=== PATIENT | male | born 1980 ===

== ENCOUNTER 2018-03-16 08:37 | Observation (INO) | payer OTHER ==
[2018-03-16 08:51] VITALS: BMI 29.0
[2018-03-16] MEDS ORDERED: Sodium Chloride 0.9% 1,000 ML IV STA (09:24)
[2018-03-16] MEDS ORDERED: WATER IVPB ONE ×4 (09:45→15:00)
[2018-03-16] MEDS ORDERED: DEXTROSE 5% IVPB ONE ×4 (09:45→15:00)
[2018-03-16] MEDS ORDERED: ACETYLCYSTEINE IVPB ONE ×4 (09:45→15:00)
--- NOTE | 2018-03-16 09:46 | ED PDOC ---
HPI: Abdomen Time Seen by Provider: 03/16/18 09:07 Chief Complaint (Nursing): Abdominal Pain Chief Complaint (Provider): Abdominal pain History Per: Patient, Child Monitor ([id number] [id number]) History/Exam Limitations: no limitations Onset/Duration Of Symptoms: Hrs Current Symptoms Are (Timing): Still Present Location Of Pain/Discomfort: Epigastric Additional History Per: Patient Additional Complaint(s): 37yo male, otherwise well, comes to ER reporting he "took too many tylenol" and now has abdominal pain. Patient states today at 1AM, patient was involved in an argument with his family and took 20 tablets of Tylenol 500mg "for attention." Patient states he subsequently had headache, abdominal pain and vomiting. Patient currently denies any suicidal ideation or plan. He has no additional medical complaints. No drugs or etoh. No chest pain or dyspnea. Patient denies any other alcohol or drug use. Past Medical History Reviewed: Historical Data, Nursing Documentation, Vital Signs Vital Signs: Last Vital Signs Temp 98.7 F 03/16/18 08:50 Pulse 75 03/16/18 08:50 Resp 18 03/16/18 08:50 BP 146/86 03/16/18 08:50 Pulse Ox 98 03/16/18 08:50 - Medical History PMH: No Chronic Diseases - Surgical History Surgical History: No Surg Hx - Family History Family History: States: No Known Family Hx - Home Medications Home Medications: Ambulatory Orders Medication Instructions Recorded No Known Home Med 01/31/17 - Allergies Allergies/Adverse Reactions: Allergies Allergy/AdvReac Type Severity Reaction Status Date / Time No Known Allergies Allergy Verified 01/31/17 21:32 Review of Systems ROS Statement: Except As Marked, All Systems Reviewed And Found Negative Constitutional: Negative for: Fever, Chills Cardiovascular: Negative for: Chest Pain Respiratory: Negative for: Shortness of Breath Gastrointestinal: Positive for: Abdominal Pain Genitourinary Male: Negative for: Dysuria Musculoskeletal: Negative for: Back Pain Neurological: Positive for: Headache. Negative for: Weakness, Numbness Psych: Negative for: Suicidal ideation Physical Exam - Reviewed Nursing Documentation Reviewed: Yes Vital Signs Reviewed: Yes - Physical Exam Appears: Positive for: Uncomfortable Head Exam: Positive for: ATRAUMATIC, NORMAL INSPECTION, NORMOCEPHALIC Skin: Positive for: Normal Color Eye Exam: Positive for: Normal appearance, EOMI, PERRL Neck: Positive for: Normal, Supple Cardiovascular/Chest: Positive for: Regular Rate, Rhythm Respiratory: Positive for: Normal Breath Sounds Gastrointestinal/Abdominal: Positive for: Soft, Tenderness (mild epigastric tenderness). Negative for: Guarding, Rebound Back: Positive for: Normal Inspection. Negative for: L CVA Tenderness, R CVA Tenderness, Vertebral Tenderness Extremity: Positive for: Normal ROM. Negative for: Pedal Edema Neurologic/Psych: Positive for: Alert, Oriented. Negative for: Motor/Sensory Deficits - Laboratory Results Result Diagrams: 03/16/18 09:52 03/16/18 09:52 Interpretation Of Abn Labs: 131 tylenol - ECG ECG: Positive for: Interpreted By Me, Viewed By Me ECG Rhythm: Positive for: Normal QRS, Normal ST Segment O2 Sat by Pulse Oximetry: 98 (RA) Pulse Ox Interpretation: Normal - Progress ED Course And Treament: 1045: Continue NAC. Tylenol levels in toxic levels per nomogram. Will need full dosing over 24hrs. 1108: Spoke with Dr. Garza. Will admit. Stable. AAOx3. - Critical Care Total Time (In Min): 30 Documented Critical Care: Time excludes all time spent performint seperately billable procedures Medical Decision Making Medical Decision Making: Impression: Tylenol overdose Plan: * Poison control consult 0933 Per poison control, labs ordered. Patient given Acetadote and IV Fluids. Patient placed on 1:1 observation. Scribe Attestation: Documented by Raquel Le, acting as a scribe for Sanchez De León MD. Provider Scribe Attestation: All medical record entries made by the Scribe were at my direction and personally dictated by me. I have reviewed the chart and agree that the record accurately reflects my personal performance of the history, physical exam, medical decision making, and the department course for this patient. I have also personally directed, reviewed, and agree with the discharge instructions and disposition. Disposition - Clinical Impression Clinical Impression: Tylenol overdose Counseled Patient/Family Regarding: Studies Performed, Diagnosis - Disposition Disposition Time: 11:10 Condition: GUARDED - Pt Status Changed To: Hospital Disposition Of: Inpatient - Admit Certification Admit to Inpatient:: After my assessment, the patient will require hospitalization for at least two midnights. This is because of the severity of symptoms shown, intensity of services needed, and/or the medical risk in this patient being treated as an outpatient. - POA Present On Arrival: None
[2018-03-16 09:57] LABS: BASO # 0.1 K/uL (0.0-0.2); BASO % 0.4 % (0.0-2.0); EOS % 0.2 % (0.0-4.0); HEMOGLOBIN 16.7 g/dL (12.0-18.0); LYMPH # 1.6 K/uL (1.0-4.3); LYMPH % 13.2 % (20.0-40.0); MEAN CORPUSCULAR HEMOGLOBIN 32.8 pg (27.0-31.0); MEAN CORPUSCULAR HGB CONC 34.9 g/dL (33.0-37.0); MEAN PLATELET VOLUME 8.2 fl (7.2-11.7); MONO # 0.5 K/uL (0.0-0.8); MONO % 4.3 % (0.0-10.0); NEUT # 9.9 K/uL (1.8-7.0); NEUT % 81.9 % (50.0-75.0); NRBC % 0.1 % (0.0-0.0); RBC 5.08 Mil/uL (4.40-5.90); RED CELL DISTRIBUTION WIDTH 13.4 % (11.5-14.5); WHITE BLOOD COUNT 12.2 K/uL (4.8-10.8)
[2018-03-16 10:10] LABS: INR 1.1; PROTHROMBIN TIME 12.4 Seconds (9.8-13.1)
[2018-03-16 10:11] LABS: ALB/GLOB RATIO 1.3 (1.0-2.1); ALBUMIN 4.6 g/dL (3.5-5.0); BLOOD UREA NITROGEN 14 mg/dl (9-20); CALCIUM 9.5 mg/dL (8.4-10.2); GFR NON-AFRICAN AMERICAN > 60; LIPASE 146 U/L (23-300)
[2018-03-16 10:12] LABS: PARTIAL THROMBOPLASTIN TIME 34.4 Seconds (25.6-37.1)
[2018-03-16 10:19] LABS: ALT/SGPT 52 U/L (21-72); AST/SGOT 34 U/L (17-59); BARBITURATES, UR NEGATIVE (NEGATIVE); BENZODIAZEPINES, UR NEGATIVE (NEGATIVE); OPIATES, UR NEGATIVE (NEGATIVE); PHENCYCLIDINE, UR NEGATIVE (NEGATIVE)
[2018-03-16 10:30] LABS: SALICYLATE < 1.0 mg/dl
--- NOTE | 2018-03-16 11:56 | CP.PCM.HP ---
<Alyssa Sommers - Last Filed: 03/16/18 17:09> History of Present Illness - History of Present Illness History of Present Illness: This is 37 y/o male with no significant PMH admitted to [facility] s/p Tylenol overdose at 1am in the morning. Patient came to the ER c/o acute onset of abdominal pain, nausea and vomiting which started at 8 am in the morning. Patient reports taking about 20 Tab of Tyenol 500mg each after had an argument with his at home. Patient denies any SI/HI, reports no prior episode of this kind of behavior. Patient took tylenol, slept and went to work in morning where he started c/o upper mid abdominal pain, nausea and vomited x2 NBNB. Abdominal pain is 6/10, non-radiating, no alleviating or aggravating factors. Patient denies any SOB, chest pain, palpitations, urinary symptoms or weakness. Patient denies any PMH of mood disorders or family hx of any psych conditions. [place] [id number] PMD: None PMH: Denies PSH: Appendectomy as a child Allg: NKDA Medications: None SH: Denies any alcohol, smoking or illicit drug use FH: Mother with HTN, Healthy father and a sister ROS: As per HPI ER Course: VS: 98.7, 75, 18, 146/86, Spo2 98 CBC: Significant for wbc 12.2 CMP: wnls, no elevated LFTs Negative trop, lipase normal Coag: Wnl UTox: Negative Acetaminophen 131H EKG NSR Poison control contacted Started on NAC and IVF Present on Admission - Present on Admission Any Indicators Present on Admission: No History of DVT/PE: No History of Uncontrolled Diabetes: No Review of Systems - Constitutional Constitutional: As Per HPI - EENT Eyes: absent: Change in Vision, Other Visual Disturbances, Loss of Vision Ears: absent: Ear Pain, Tinnitus Nose/Mouth/Throat: absent: Nose Pain, Sinus Pain, Hoarsness, Lip Swelling - Cardiovascular Cardiovascular: absent: Chest Pain, Edema, Paroxysmal Nocturnal Dyspnea - Respiratory Respiratory: absent: Cough, Hemoptysis, Dyspnea on Exertion, Wheezing - Gastrointestinal Gastrointestinal: Abdominal Pain, Nausea. absent: Diarrhea - Genitourinary Genitourinary: absent: Hematuria - Musculoskeletal Musculoskeletal: absent: Back Pain - Neurological Neurological: absent: Abnormal Gait Past Patient History - Past Social History Smoking Status: Current Some Days Smoker - CARDIAC Hx Hypertension: Yes - PSYCHIATRIC Hx Depression: Yes Hx Substance Use: No - SURGICAL HISTORY Hx Surgeries: Yes Hx Appendectomy: Yes - ANESTHESIA Hx Anesthesia: Yes Hx Anesthesia Reactions: No Meds Allergies/Adverse Reactions: Allergies Allergy/AdvReac Type Severity Reaction Status Date / Time No Known Allergies Allergy Verified 01/31/17 21:32 Physical Exam - Constitutional Appears: No Acute Distress - Head Exam Head Exam: NORMAL INSPECTION - Eye Exam Eye Exam: EOMI, Normal appearance, PERRL Pupil Exam: NORMAL ACCOMODATION - ENT Exam ENT Exam: Mucous Membranes Moist - Neck Exam Neck exam: Positive for: Normal Inspection - Respiratory Exam Respiratory Exam: Clear to Auscultation Bilateral, NORMAL BREATHING PATTERN. absent: Accessory Muscle Use, Chest Wall Tenderness, Decreased Breath Sounds, Rhonchi, Wheezes - Cardiovascular Exam Cardiovascular Exam: REGULAR RHYTHM, +S1, +S2 - GI/Abdominal Exam GI & Abdominal Exam: Normal Bowel Sounds, Soft. absent: Guarding, Hernia, Rebound, Rigid, Tenderness - Back Exam Back exam: absent: CVA tenderness (L), CVA tenderness (R) - Neurological Exam Neurological exam: Alert, CN II-XII Intact, Oriented x3, Reflexes Normal - Psychiatric Exam Psychiatric exam: Normal Affect - Skin Skin Exam: Normal Color Results - Vital Signs Recent Vital Signs: Last Vital Signs Temp 97 F L 03/16/18 11:23 Pulse 66 03/16/18 11:23 Resp 19 03/16/18 11:23 BP 140/75 03/16/18 11:23 Pulse Ox 98 03/16/18 11:23 - Labs Result Diagrams: 03/16/18 09:52 03/16/18 09:52 Labs: Laboratory Results - last 24 hr 03/16/18 03/16/18 03/16/18 09:52 09:52 09:52 WBC 12.2 H RBC 5.08 Hgb 16.7 Hct 47.7 MCV 94.0 MCH 32.8 H MCHC 34.9 RDW 13.4 Plt Count 250 MPV 8.2 Neut % (Auto) 81.9 H Lymph % (Auto) 13.2 L Carver % (Auto) 4.3 Eos % (Auto) 0.2 Baso % (Auto) 0.4 Neut # (Auto) 9.9 H Lymph # (Auto) 1.6 Carver # (Auto) 0.5 Eos # (Auto) 0.0 Baso # (Auto) 0.1 PT INR APTT Sodium 140 Potassium 4.2 Chloride 107 Carbon Dioxide 23 Anion Gap 14 BUN 14 Creatinine 0.6 L Est GFR ( Amer) > 60 Est GFR (Non-Af Amer) > 60 Random Glucose 141 H Calcium 9.5 Phosphorus 3.7 Magnesium 2.3 Total Bilirubin 0.9 AST 34 ALT 52 Alkaline Phosphatase 56 Troponin I < 0.0120 Total Protein 8.2 Albumin 4.6 Globulin 3.6 Albumin/Globulin Ratio 1.3 Lipase 146 Salicylates < 1.0 Urine Opiates Screen Urine Methadone Screen Acetaminophen 131.0 H Ur Barbiturates Screen Ur Phencyclidine Scrn Ur Amphetamines Screen U Benzodiazepines Scrn U Oth Cocaine Metabols U Cannabinoids Screen Alcohol, Quantitative < 10 03/16/18 03/16/18 09:52 09:52 WBC RBC Hgb Hct MCV MCH MCHC RDW Plt Count MPV Neut % (Auto) Lymph % (Auto) Carver % (Auto) Eos % (Auto) Baso % (Auto) Neut # (Auto) Lymph # (Auto) Carver # (Auto) Eos # (Auto) Baso # (Auto) PT 12.4 INR 1.1 APTT 34.4 Sodium Potassium Chloride Carbon Dioxide Anion Gap BUN Creatinine Est GFR ( Amer) Est GFR (Non-Af Amer) Random Glucose Calcium Phosphorus Magnesium Total Bilirubin AST ALT Alkaline Phosphatase Troponin I Total Protein Albumin Globulin Albumin/Globulin Ratio Lipase Salicylates Urine Opiates Screen Negative Urine Methadone Screen Negative Acetaminophen Ur Barbiturates Screen Negative Ur Phencyclidine Scrn Negative Ur Amphetamines Screen Negative U Benzodiazepines Scrn Negative U Oth Cocaine Metabols Negative U Cannabinoids Screen Negative Alcohol, Quantitative Assessment & Plan - Assessment and Plan (Free Text) Assessment: A/P: 37 y/o male with no significant PMH admitted to [facility] s/p Tylenol about 20 Tabs, 500mg each. Tylenol Overdose, about 10gm, Acetaminophen level 131 and normal initial LFTs - Poison Controlled was informed - Psych consult, Follow up recommendations - C/w NAC protocol - F/u with Acetaminophen Level this afternoon - C/w IVF, Regular diet - C/w 1:1 for now - Monitor Labs in AM Abdominal pain/Nausea/Vomiting possibly due to acetaminophen overdose - C/w NAC - C/w IVF - NPO for now, Advance diet as tolerated - Zofran PRN - Monitor AM labs DVT PPX - Lovenox 40mg PO daily <Kory Garza D - Last Filed: 03/16/18 17:35> Results - Vital Signs Recent Vital Signs: Last Vital Signs Temp 98.1 F 03/16/18 16:01 Pulse 69 03/16/18 16:01 Resp 20 03/16/18 16:01 BP 131/83 03/16/18 16:01 Pulse Ox 100 03/16/18 16:01 - Labs Result Diagrams: 03/16/18 09:52 03/16/18 09:52 Labs: Laboratory Results - last 24 hr 03/16/18 03/16/18 03/16/18 09:52 09:52 09:52 WBC 12.2 H RBC 5.08 Hgb 16.7 Hct 47.7 MCV 94.0 MCH 32.8 H MCHC 34.9 RDW 13.4 Plt Count 250 MPV 8.2 Neut % (Auto) 81.9 H Lymph % (Auto) 13.2 L Carver % (Auto) 4.3 Eos % (Auto) 0.2 Baso % (Auto) 0.4 Neut # (Auto) 9.9 H Lymph # (Auto) 1.6 Carver # (Auto) 0.5 Eos # (Auto) 0.0 Baso # (Auto) 0.1 PT INR APTT Sodium 140 Potassium 4.2 Chloride 107 Carbon Dioxide 23 Anion Gap 14 BUN 14 Creatinine 0.6 L Est GFR ( Amer) > 60 Est GFR (Non-Af Amer) > 60 Random Glucose 141 H Calcium 9.5 Phosphorus 3.7 Magnesium 2.3 Total Bilirubin 0.9 AST 34 ALT 52 Alkaline Phosphatase 56 Troponin I < 0.0120 Total Protein 8.2 Albumin 4.6 Globulin 3.6 Albumin/Globulin Ratio 1.3 Lipase 146 Salicylates < 1.0 Urine Opiates Screen Urine Methadone Screen Acetaminophen 131.0 H Ur Barbiturates Screen Ur Phencyclidine Scrn Ur Amphetamines Screen U Benzodiazepines Scrn U Oth Cocaine Metabols U Cannabinoids Screen Alcohol, Quantitative < 10 03/16/18 03/16/18 03/16/18 09:52 09:52 16:26 WBC RBC Hgb Hct MCV MCH MCHC RDW Plt Count MPV Neut % (Auto) Lymph % (Auto) Carver % (Auto) Eos % (Auto) Baso % (Auto) Neut # (Auto) Lymph # (Auto) Carver # (Auto) Eos # (Auto) Baso # (Auto) PT 12.4 INR 1.1 APTT 34.4 Sodium Potassium Chloride Carbon Dioxide Anion Gap BUN Creatinine Est GFR ( Amer) Est GFR (Non-Af Amer) Random Glucose Calcium Phosphorus Magnesium Total Bilirubin AST ALT Alkaline Phosphatase Troponin I Total Protein Albumin Globulin Albumin/Globulin Ratio Lipase Salicylates Urine Opiates Screen Negative Urine Methadone Screen Negative Acetaminophen 24.0 Ur Barbiturates Screen Negative Ur Phencyclidine Scrn Negative Ur Amphetamines Screen Negative U Benzodiazepines Scrn Negative U Oth Cocaine Metabols Negative U Cannabinoids Screen Negative Alcohol, Quantitative Attending/Attestation - Attestation I have personally seen and examined this patient.: Yes I have fully participated in the care of the patient.: Yes I have reviewed all pertinent clinical information: Yes
--- NOTE | 2018-03-16 16:01 | CARD ---
APPROVED REPORT Date of service: 03/16/2018 EKG Measurement Heart [id number] <Conclusion> Normal sinus rhythm Minimal voltage criteria for LVH, may be normal variant Borderline ECG
[2018-03-16] MEDS ORDERED: Pneumococcal 23-Valent Vaccine IM ONE (16:21)
[2018-03-16] MEDS ORDERED: Influenza Vaccine (5 YR UP)/PF 60 MCG/0.5 ML SYR IM ONE (17:42)
[2018-03-16] MEDS: Sodium Chloride 0.9% 1,000 ML IV SCH (18:53)
[2018-03-17 05:59] LABS: INR 1.3; PROTHROMBIN TIME 13.9 Seconds (9.8-13.1)
[2018-03-17 06:01] LABS: BASO % 0.2 % (0.0-2.0); EOS # 0.2 K/uL (0.0-0.7); EOS % 2.2 % (0.0-4.0); HEMOGLOBIN 16.2 g/dL (12.0-18.0); LYMPH # 2.5 K/uL (1.0-4.3); LYMPH % 26.7 % (20.0-40.0); MEAN CELL VOLUME 94.9 fl (80.0-94.0); MEAN CORPUSCULAR HEMOGLOBIN 32.4 pg (27.0-31.0); MEAN CORPUSCULAR HGB CONC 34.1 g/dL (33.0-37.0); MEAN PLATELET VOLUME 8.5 fl (7.2-11.7); MONO # 0.6 K/uL (0.0-0.8); MONO % 6.2 % (0.0-10.0); NEUT % 64.7 % (50.0-75.0); RED CELL DISTRIBUTION WIDTH 13.1 % (11.5-14.5); WHITE BLOOD COUNT 9.3 K/uL (4.8-10.8)
[2018-03-17 06:02] LABS: PARTIAL THROMBOPLASTIN TIME 31.8 Seconds (25.6-37.1)
[2018-03-17 06:26] LABS: ALB/GLOB RATIO 1.2 (1.0-2.1); ALT/SGPT 46 U/L (21-72); AST/SGOT 28 U/L (17-59); BLOOD UREA NITROGEN 8 mg/dl (9-20); CALCIUM 9.4 mg/dL (8.4-10.2); GFR NON-AFRICAN AMERICAN > 60
[2018-03-17] MEDS ORDERED: Potassium Chloride 20 mEq ER Tab PO ONE (06:44)
--- NOTE | 2018-03-17 08:19 | CP.PCM.CON ---
History of Present Illness - History of Present Illness History of Present Illness: Psychiatry consult note CC: "I had a fight with my girlfriend." HPI: 37 yo male w/ no past psychiatric or medical history, admitted to telemetry unit, s/p intentional overdose of 20 tablets of Tylenol (500 mg) after having an argument with his girlfriend. He reports that at the time he took the pills he was feeling depressed, but now reports that taking the pills was an "error." He denies AH/VH/SI/HI/paranoia/delusions. Patient denies that it was as suicide attempt, but he is currently minimizing the severity of the recent overdose. PMD: None PMH: Denies PPH: No past psychiatric history PSH: Appendectomy as a child All: NKDA Medications: None SH: Denies any alcohol, smoking or illicit drug use; works as a school bus driver/custodian, from [employer] [facility] FH: Mother with HTN, Healthy father and a sister MSE: A + O x 3, calm, cooperate, mood- "okay", affect- depressed/constricted, speech soft, no AH/VH, thought process- linear/coherent, thought content- no delusions, +Recent overdose, but denies current SI/HI; Poor I/J Impression: 37 yo male w/ no past psychiatric history admitted s/p intentional tylenol overdose. -Recommend voluntary inpatient psychiatric admission; if patient is not agreeable, would recommend to screen the patient for involuntary psychiatric commitment -Continue 1:1 for safety Past Patient History - Past Medical History & Family History Past Medical History?: No - Past Social History Smoking Status: Current Some Days Smoker - CARDIAC Hx Hypertension: Yes - PULMONARY Hx Respiratory Disorders: No - NEUROLOGICAL Hx Neurological Disorder: No - HEENT Hx HEENT Problems: No - RENAL Hx Chronic Kidney Disease: No - ENDOCRINE/METABOLIC Hx Endocrine Disorders: No - HEMATOLOGICAL/ONCOLOGICAL Hx Blood Disorders: No Hx AIDS: No Hx Human Immunodeficiency Virus (HIV): No - INTEGUMENTARY Hx Dermatological Problems: No - MUSCULOSKELETAL/RHEUMATOLOGICAL Hx Musculoskeletal Disorders: No Hx Falls: No - GASTROINTESTINAL Hx Gastrointestinal Disorders: No - GENITOURINARY/GYNECOLOGICAL Hx Genitourinary Disorders: No - PSYCHIATRIC Hx Depression: Yes Hx Substance Use: No - SURGICAL HISTORY Hx Surgeries: Yes Hx Appendectomy: Yes - ANESTHESIA Hx Anesthesia: Yes Hx Anesthesia Reactions: No Meds Allergies/Adverse Reactions: Allergies Allergy/AdvReac Type Severity Reaction Status Date / Time No Known Allergies Allergy Verified 01/31/17 21:32 - Medications Medications: Current Medications Enoxaparin Sodium (Lovenox) 40 mg SC DAILY PARAS; Protocol Sodium Chloride (Sodium Chloride 0.9%) 1,000 mls @ 125 mls/hr IV .Q8H PARAS Stop: 03/17/18 15:52 Last Admin: 03/16/18 18:53 Dose: Not Given Ondansetron HCl (Zofran Inj) 4 mg IVP Q6 PRN PRN Reason: Nausea/Vomiting Results - Vital Signs Recent Vital Signs: Last Vital Signs Temp 97.7 F 03/17/18 04:52 Pulse 73 03/17/18 04:52 Resp 18 03/17/18 04:52 BP 114/60 03/17/18 04:52 Pulse Ox 98 03/17/18 04:52 - Labs Result Diagrams: 03/17/18 04:25 03/17/18 04:25 Labs: Laboratory Results - last 24 hr 03/16/18 03/16/18 03/16/18 09:52 09:52 09:52 WBC 12.2 H RBC 5.08 Hgb 16.7 Hct 47.7 MCV 94.0 MCH 32.8 H MCHC 34.9 RDW 13.4 Plt Count 250 MPV 8.2 Neut % (Auto) 81.9 H Lymph % (Auto) 13.2 L Loving % (Auto) 4.3 Eos % (Auto) 0.2 Baso % (Auto) 0.4 Neut # (Auto) 9.9 H Lymph # (Auto) 1.6 Loving # (Auto) 0.5 Eos # (Auto) 0.0 Baso # (Auto) 0.1 PT INR APTT Sodium 140 Potassium 4.2 Chloride 107 Carbon Dioxide 23 Anion Gap 14 BUN 14 Creatinine 0.6 L Est GFR ( Amer) > 60 Est GFR (Non-Af Amer) > 60 Random Glucose 141 H Lactic Acid Calcium 9.5 Phosphorus 3.7 Magnesium 2.3 Total Bilirubin 0.9 AST 34 ALT 52 Alkaline Phosphatase 56 Troponin I < 0.0120 Total Protein 8.2 Albumin 4.6 Globulin 3.6 Albumin/Globulin Ratio 1.3 Lipase 146 Salicylates < 1.0 Urine Opiates Screen Urine Methadone Screen Acetaminophen 131.0 H Ur Barbiturates Screen Ur Phencyclidine Scrn Ur Amphetamines Screen U Benzodiazepines Scrn U Oth Cocaine Metabols U Cannabinoids Screen Alcohol, Quantitative < 10 03/16/18 03/16/18 03/16/18 09:52 09:52 16:26 WBC RBC Hgb Hct MCV MCH MCHC RDW Plt Count MPV Neut % (Auto) Lymph % (Auto) Loving % (Auto) Eos % (Auto) Baso % (Auto) Neut # (Auto) Lymph # (Auto) Loving # (Auto) Eos # (Auto) Baso # (Auto) PT 12.4 INR 1.1 APTT 34.4 Sodium Potassium Chloride Carbon Dioxide Anion Gap BUN Creatinine Est GFR ( Amer) Est GFR (Non-Af Amer) Random Glucose Lactic Acid Calcium Phosphorus Magnesium Total Bilirubin AST ALT Alkaline Phosphatase Troponin I Total Protein Albumin Globulin Albumin/Globulin Ratio Lipase Salicylates Urine Opiates Screen Negative Urine Methadone Screen Negative Acetaminophen 24.0 Ur Barbiturates Screen Negative Ur Phencyclidine Scrn Negative Ur Amphetamines Screen Negative U Benzodiazepines Scrn Negative U Oth Cocaine Metabols Negative U Cannabinoids Screen Negative Alcohol, Quantitative 03/17/18 03/17/18 03/17/18 04:25 04:25 04:25 WBC 9.3 RBC 5.00 Hgb 16.2 Hct 47.5 MCV 94.9 H MCH 32.4 H MCHC 34.1 RDW 13.1 Plt Count 239 MPV 8.5 Neut % (Auto) 64.7 Lymph % (Auto) 26.7 Loving % (Auto) 6.2 Eos % (Auto) 2.2 Baso % (Auto) 0.2 Neut # (Auto) 6.0 Lymph # (Auto) 2.5 Loving # (Auto) 0.6 Eos # (Auto) 0.2 Baso # (Auto) 0.0 PT INR APTT Sodium 137 Potassium 3.3 L Chloride 104 Carbon Dioxide 25 Anion Gap 11 BUN 8 L Creatinine 0.5 L Est GFR ( Amer) > 60 Est GFR (Non-Af Amer) > 60 Random Glucose 120 H Lactic Acid 0.8 Calcium 9.4 Phosphorus Magnesium Total Bilirubin 0.7 AST 28 ALT 46 Alkaline Phosphatase 56 Troponin I Total Protein 7.2 Albumin 4.0 Globulin 3.2 Albumin/Globulin Ratio 1.2 Lipase Salicylates Urine Opiates Screen Urine Methadone Screen Acetaminophen Ur Barbiturates Screen Ur Phencyclidine Scrn Ur Amphetamines Screen U Benzodiazepines Scrn U Oth Cocaine Metabols U Cannabinoids Screen Alcohol, Quantitative 03/17/18 03/17/18 04:25 04:25 WBC RBC Hgb Hct MCV MCH MCHC RDW Plt Count MPV Neut % (Auto) Lymph % (Auto) Loving % (Auto) Eos % (Auto) Baso % (Auto) Neut # (Auto) Lymph # (Auto) Loving # (Auto) Eos # (Auto) Baso # (Auto) PT 13.9 H INR 1.3 APTT 31.8 Sodium Potassium Chloride Carbon Dioxide Anion Gap BUN Creatinine Est GFR ( Amer) Est GFR (Non-Af Amer) Random Glucose Lactic Acid Calcium Phosphorus Magnesium Total Bilirubin AST ALT Alkaline Phosphatase Troponin I Total Protein Albumin Globulin Albumin/Globulin Ratio Lipase Salicylates Urine Opiates Screen Urine Methadone Screen Acetaminophen < 10.0 L Ur Barbiturates Screen Ur Phencyclidine Scrn Ur Amphetamines Screen U Benzodiazepines Scrn U Oth Cocaine Metabols U Cannabinoids Screen Alcohol, Quantitative
[2018-03-17 08:43] VITALS: O2SAT 97
[2018-03-17] MEDS ORDERED: Enoxaparin 40 mg Syringe SC SCH (09:00)
--- NOTE | 2018-03-17 09:16 | CP.PCM.DIS ---
<Alyssa Sommers - Last Filed: 03/17/18 09:42> Provider - Provider Date of Admission: 03/16/18 11:08 Attending physician: Kory Garza MD Primary care physician: None Consults: Poison Control Time Spent in preparation of Discharge (in minutes): 40 Diagnosis - Discharge Diagnosis (1) Tylenol overdose Status: Acute (2) Depressed mood Status: Acute Hospital Course - Lab Results Lab Results: Most Recent Lab Values WBC 9.3 K/uL (4.8-10.8) 03/17/18 04:25 RBC 5.00 Mil/uL (4.40-5.90) 03/17/18 04:25 Hgb 16.2 g/dL (12.0-18.0) 03/17/18 04:25 Hct 47.5 % (35.0-51.0) 03/17/18 04:25 MCV 94.9 fl (80.0-94.0) H 03/17/18 04:25 MCH 32.4 pg (27.0-31.0) H 03/17/18 04:25 MCHC 34.1 g/dL (33.0-37.0) 03/17/18 04:25 RDW 13.1 % (11.5-14.5) 03/17/18 04:25 Plt Count 239 K/uL (130-400) 03/17/18 04:25 MPV 8.5 fl (7.2-11.7) 03/17/18 04:25 Neut % (Auto) 64.7 % (50.0-75.0) 03/17/18 04:25 Lymph % (Auto) 26.7 % (20.0-40.0) 03/17/18 04:25 [place] % (Auto) 6.2 % (0.0-10.0) 03/17/18 04:25 Eos % (Auto) 2.2 % (0.0-4.0) 03/17/18 04:25 Baso % (Auto) 0.2 % (0.0-2.0) 03/17/18 04:25 Neut # (Auto) 6.0 K/uL (1.8-7.0) 03/17/18 04:25 Lymph # (Auto) 2.5 K/uL (1.0-4.3) 03/17/18 04:25 [place] # (Auto) 0.6 K/uL (0.0-0.8) 03/17/18 04:25 Eos # (Auto) 0.2 K/uL (0.0-0.7) 03/17/18 04:25 Baso # (Auto) 0.0 K/uL (0.0-0.2) 03/17/18 04:25 PT 13.9 Seconds (9.8-13.1) H 03/17/18 04:25 INR 1.3 03/17/18 04:25 APTT 31.8 Seconds (25.6-37.1) 03/17/18 04:25 Sodium 137 mmol/l (132-148) 03/17/18 04:25 Potassium 3.3 MMOL/L (3.6-5.0) L 03/17/18 04:25 Chloride 104 mmol/L (98-107) 03/17/18 04:25 Carbon Dioxide 25 mmol/L (22-30) 03/17/18 04:25 Anion Gap 11 (10-20) 03/17/18 04:25 BUN 8 mg/dl (9-20) L 03/17/18 04:25 Creatinine 0.5 mg/dl (0.8-1.5) L 03/17/18 04:25 Est GFR ( Amer) > 60 03/17/18 04:25 Est GFR (Non-Af Amer) > 60 03/17/18 04:25 Random Glucose 120 mg/dL (75-110) H 03/17/18 04:25 Lactic Acid 0.8 MMOL/L (0.7-2.1) 03/17/18 04:25 Calcium 9.4 mg/dL (8.4-10.2) 03/17/18 04:25 Phosphorus 3.7 mg/dl (2.5-4.5) 03/16/18 09:52 Magnesium 2.3 MG/DL (1.6-2.3) 03/16/18 09:52 Total Bilirubin 0.7 mg/dl (0.2-1.3) 03/17/18 04:25 AST 28 U/L (17-59) 03/17/18 04:25 ALT 46 U/L (21-72) 03/17/18 04:25 Alkaline Phosphatase 56 U/L (38-126) 03/17/18 04:25 Troponin I < 0.0120 ng/mL (0.00-0.120) 03/16/18 09:52 Total Protein 7.2 G/DL (6.3-8.2) 03/17/18 04:25 Albumin 4.0 g/dL (3.5-5.0) 03/17/18 04:25 Globulin 3.2 gm/dL (2.2-3.9) 03/17/18 04:25 Albumin/Globulin Ratio 1.2 (1.0-2.1) 03/17/18 04:25 Lipase 146 U/L (23-300) 03/16/18 09:52 Salicylates < 1.0 mg/dl 03/16/18 09:52 Urine Opiates Screen Negative (NEGATIVE) 03/16/18 09:52 Urine Methadone Screen Negative (NEGATIVE) 03/16/18 09:52 Acetaminophen < 10.0 ug/ml (10.0-30.0) L 03/17/18 04:25 Ur Barbiturates Screen Negative (NEGATIVE) 03/16/18 09:52 Ur Phencyclidine Scrn Negative (NEGATIVE) 03/16/18 09:52 Ur Amphetamines Screen Negative (NEGATIVE) 03/16/18 09:52 U Benzodiazepines Scrn Negative (NEGATIVE) 03/16/18 09:52 U Oth Cocaine Metabols Negative (NEGATIVE) 03/16/18 09:52 U Cannabinoids Screen Negative (NEGATIVE) 03/16/18 09:52 Alcohol, Quantitative < 10 mg/dl (0-10) 03/16/18 09:52 - Hospital Course Hospital Course: This is 37 y/o male with no PMH admitted to [facility] for evaluation and treatment of tylenol overdose after an argument with her . Patient reported about 10gm Tylenol ingestion and presented to the ER for acute abdominal pain, nausea and NBNB vomiting. Poison controlled informed, Serum Acetaminophen level 131, Utox, CBC, CMP and Coag with in normal limits. Patient was started on 24 hours NAC protocol for tylenol overdose. Psych was consulted who recommended inpatient psychiatric admission due to depressed mood and overdose. Patient is s/p NAC, CBC, CMP, Coag remained with in normal limits, ambulating and tolerating PO intake with good appetite. Patient is asymptomatic, medically stable at this time and ready for the discharge to the inpatient psychiatric admission. Home medications: None Discharge medications: None Discharge instructions: As per psych Discharge Exam - Head Exam Head Exam: NORMAL INSPECTION - Eye Exam Eye Exam: Normal appearance, PERRL Pupil Exam: NORMAL ACCOMODATION - ENT Exam ENT Exam: Mucous Membranes Moist - Respiratory Exam Respiratory Exam: Clear to PA & Lateral, NORMAL BREATHING PATTERN. absent: Accessory Muscle Use, Chest Wall Tenderness, Decreased Breath Sounds, Wheezes - Cardiovascular Exam Cardiovascular Exam: REGULAR RHYTHM, +S1, +S2 - GI/Abdominal Exam GI & Abdominal Exam: Normal Bowel Sounds, Soft. absent: Diminished Bowel Sounds, Hernia, Organomegaly, Pulsatile Mass, Rebound, Rigid, Tenderness - Back Exam Back exam: absent: CVA tenderness (L), CVA tenderness (R) - Neurological Exam Neurological exam: Alert, CN II-XII Intact, Normal Gait, Oriented x3 - Psychiatric Exam Psychiatric exam: Normal Affect - Skin Skin Exam: Normal Color Discharge Plan - Follow Up Plan Condition: GUARDED Disposition: DISCHARGE TO PSYCH HOSPITAL Instructions: Acetaminophen Overdose (DC) Additional Instructions: Inpatient psychiatric admission as per psych Medically stable Follow up PMD/ NHC after discharge Referrals: [facility] [Outside] <Mindy Sher - Last Filed: 03/17/18 16:57> Provider - Provider Date of Admission: 03/16/18 11:08 Attending physician: Kory Garza MD Hospital Course - Lab Results Lab Results: Most Recent Lab Values WBC 7.3 K/uL (4.8-10.8) 03/17/18 10:20 RBC 5.07 Mil/uL (4.40-5.90) 03/17/18 10:20 Hgb 16.3 g/dL (12.0-18.0) 03/17/18 10:20 Hct 47.9 % (35.0-51.0) 03/17/18 10:20 MCV 94.4 fl (80.0-94.0) H 03/17/18 10:20 MCH 32.1 pg (27.0-31.0) H 03/17/18 10:20 MCHC 34.0 g/dL (33.0-37.0) 03/17/18 10:20 RDW 13.4 % (11.5-14.5) 03/17/18 10:20 Plt Count 247 K/uL (130-400) 03/17/18 10:20 MPV 8.5 fl (7.2-11.7) 03/17/18 04:25 Neut % (Auto) 64.7 % (50.0-75.0) 03/17/18 04:25 Lymph % (Auto) 26.7 % (20.0-40.0) 03/17/18 04:25 [place] % (Auto) 6.2 % (0.0-10.0) 03/17/18 04:25 Eos % (Auto) 2.2 % (0.0-4.0) 03/17/18 04:25 Baso % (Auto) 0.2 % (0.0-2.0) 03/17/18 04:25 Neut # (Auto) 6.0 K/uL (1.8-7.0) 03/17/18 04:25 Lymph # (Auto) 2.5 K/uL (1.0-4.3) 03/17/18 04:25 [place] # (Auto) 0.6 K/uL (0.0-0.8) 03/17/18 04:25 Eos # (Auto) 0.2 K/uL (0.0-0.7) 03/17/18 04:25 Baso # (Auto) 0.0 K/uL (0.0-0.2) 03/17/18 04:25 PT 14.1 Seconds (9.8-13.1) H 03/17/18 10:20 INR 1.3 03/17/18 10:20 APTT 31.8 Seconds (25.6-37.1) 03/17/18 04:25 Sodium 138 mmol/l (132-148) 03/17/18 10:20 Potassium 3.5 MMOL/L (3.6-5.0) L 03/17/18 10:20 Chloride 104 mmol/L (98-107) 03/17/18 10:20 Carbon Dioxide 25 mmol/L (22-30) 03/17/18 10:20 Anion Gap 13 (10-20) 03/17/18 10:20 BUN 7 mg/dl (9-20) L 03/17/18 10:20 Creatinine 0.6 mg/dl (0.8-1.5) L 03/17/18 10:20 Est GFR ( Amer) > 60 03/17/18 10:20 Est GFR (Non-Af Amer) > 60 03/17/18 10:20 Random Glucose 137 mg/dL (75-110) H 03/17/18 10:20 Lactic Acid 0.8 MMOL/L (0.7-2.1) 03/17/18 04:25 Calcium 9.5 mg/dL (8.4-10.2) 03/17/18 10:20 Phosphorus 3.7 mg/dl (2.5-4.5) 03/16/18 09:52 Magnesium 2.3 MG/DL (1.6-2.3) 03/16/18 09:52 Total Bilirubin 0.7 mg/dl (0.2-1.3) 03/17/18 10:20 AST 25 U/L (17-59) 03/17/18 10:20 ALT 55 U/L (21-72) 03/17/18 10:20 Alkaline Phosphatase 53 U/L (38-126) 03/17/18 10:20 Troponin I < 0.0120 ng/mL (0.00-0.120) 03/16/18 09:52 Total Protein 7.4 G/DL (6.3-8.2) 03/17/18 10:20 Albumin 4.1 g/dL (3.5-5.0) 03/17/18 10:20 Globulin 3.3 gm/dL (2.2-3.9) 03/17/18 10:20 Albumin/Globulin Ratio 1.2 (1.0-2.1) 03/17/18 10:20 Lipase 146 U/L (23-300) 03/16/18 09:52 Salicylates < 1.0 mg/dl 03/16/18 09:52 Urine Opiates Screen Negative (NEGATIVE) 03/16/18 09:52 Urine Methadone Screen Negative (NEGATIVE) 03/16/18 09:52 Acetaminophen < 10.0 ug/ml (10.0-30.0) L 03/17/18 04:25 Ur Barbiturates Screen Negative (NEGATIVE) 03/16/18 09:52 Ur Phencyclidine Scrn Negative (NEGATIVE) 03/16/18 09:52 Ur Amphetamines Screen Negative (NEGATIVE) 03/16/18 09:52 U Benzodiazepines Scrn Negative (NEGATIVE) 03/16/18 09:52 U Oth Cocaine Metabols Negative (NEGATIVE) 03/16/18 09:52 U Cannabinoids Screen Negative (NEGATIVE) 03/16/18 09:52 Alcohol, Quantitative < 10 mg/dl (0-10) 03/16/18 09:52 Attending/Attestation - Attestation I have personally seen and examined this patient.: Yes I have fully participated in the care of the patient.: Yes I have reviewed all pertinent clinical information, including history, physical exam and plan: Yes Notes (Text): 1. Intentional Drug Overdose - Acetaminophen 2. Depression - LFTs normal, Coags normal, Platelet normal, Acetaminophen level now normal - Pt is asymptomatic - Pt is clear for d/c pt to Inpatient Psych
[2018-03-17] MEDS: Sodium Chloride 0.9% 1,000 ML IV SCH (09:38)
[2018-03-17 10:26] LABS: HEMOGLOBIN 16.3 g/dL (12.0-18.0); MEAN CELL VOLUME 94.4 fl (80.0-94.0); MEAN CORPUSCULAR HEMOGLOBIN 32.1 pg (27.0-31.0); RBC 5.07 Mil/uL (4.40-5.90); RED CELL DISTRIBUTION WIDTH 13.4 % (11.5-14.5); WHITE BLOOD COUNT 7.3 K/uL (4.8-10.8)
[2018-03-17 10:33] LABS: INR 1.3; PROTHROMBIN TIME 14.1 Seconds (9.8-13.1)
[2018-03-17 10:44] LABS: ALB/GLOB RATIO 1.2 (1.0-2.1); ALBUMIN 4.1 g/dL (3.5-5.0); ALT/SGPT 55 U/L (21-72); AST/SGOT 25 U/L (17-59); BLOOD UREA NITROGEN 7 mg/dl (9-20); CALCIUM 9.5 mg/dL (8.4-10.2); GFR NON-AFRICAN AMERICAN > 60
[2018-03-17 16:17] VITALS: BP 123/76; PULSE 73; RESP 16; TEMP 98.2
== END 2018-03-17 18:54 ==
LOC: H.ER 08:37 → H.ERHOLD 11:08 → INTOOBSV 11:08 → H.TEL 15:41
PROVIDERS: ADMIT Internal Medicine; ATTEND Internal Medicine
DX: T39.1X2A Poisoning by 4-Aminophenol derivatives, intentional self-harm, initial encounter (principal); R10.10 Upper abdominal pain, unspecified; R11.2 Nausea with vomiting, unspecified; F17.200 Nicotine dependence, unspecified, uncomplicated; I10 Essential (primary) hypertension; F32.9 Major depressive disorder, single episode, unspecified; Z23 Encounter for immunization
CPT/HCPCS: 36415; 80053; 80320; 80324; 80329; 80345; 80346; 80349; 80353; 80358; 80361; 83605; 83690; 83735; 83992; 84100; 84484; 85025; 85027; 85610; 85730; 90471; 90732; 93005; 99285; G0378; J0132; J1650; J2405; J7030; J7060; J7070; Q2035

== ENCOUNTER 2018-03-17 18:35 | Inpatient (IN) | payer OTHER ==
[2018-03-16 08:51] VITALS: BMI 29.0
[2018-03-17] MEDS ORDERED: Magnesium Hydroxide Susp 30 ml UD PO PRN (19:08)
[2018-03-17] MEDS ORDERED: Alum-Mag Hydrox-Simethicone Susp (30 mL) PO PRN (19:08)
[2018-03-17] MEDS ORDERED: DiphenhydrAMINE 50 mg/ml Inj IM PRN (19:08)
[2018-03-17] MEDS ORDERED: LURASIDONE HYDROCHLORIDE 80 MG PO SCH (22:00)
--- NOTE | 2018-03-18 03:10 | PCM.BM ---
<Stephanie Valadez - Last Filed: 03/18/18 03:08> Treatment Plan Problems - Problems identified on initial assessmt Suicidal Ideation Date Initiated: 03/18/18 Time Initiated: 03:08 Assessment reference: NA Status: Active Self Harm Date Initiated: 03/18/18 Time Initiated: 03:09 Assessment reference: NA Status: Active Hoplessness/Helplessness Date Initiated: 03/18/18 Time Initiated: 03:10 Assessment reference: NA Status: Active Treatment assets and liabiliti Patient Assests: cooperative, self-reliant, ADL independent, physically healthy, good support system Patient Liabilities: relationship conflicts - Milieu Protocol Maintain good personal hygiene: every shift Encourage regular showers, every shift Remind patient to perform daily oral care, every shift Assist patient to perform ADL's Conduct patient checks and document Observation sheet: Q15 minutes Maintain personal safety: every shift Educate patient to report safety concerns to staff, every shift Monitor environment for contraband/sharps Medication safety: Monitor for expected outcome, potential side effects: every shift, Assess barriers to learning: every shift, Assess readiness for medication education: every shift <Dae Vickers - Last Filed: 03/20/18 15:34> - Diagnosis (1) Suicidal intent Status: Acute Interventions: psychotherapy 03/20/18 15:34
[2018-03-18 08:41] LABS: T4 5.07 ug/dl (5.5-11.0)
--- NOTE | 2018-03-18 12:43 | CP.PCM.CON ---
History of Present Illness - History of Present Illness History of Present Illness: 37 yo male with no significant PMH took about 20 tabs of Tylenol in attempt to commit suicide. Patient was put on protocol for Tylenol overdosed and received Acetylcysteine. Patient did well and became stable. He was transferred to Psyche unit for further management of suicidal intent. Review of Systems - Review of Systems All systems: reviewed and no additional remarkable complaints except (aside from those mentioned above, 12 point system review were negative by me) Past Patient History - Tetanus Immunizations Tetanus Immunization: Unknown - Past Medical History & Family History Past Medical History?: No Past Family History: Reviewed and not pertinent - Past Social History Smoking Status: Current Some Days Smoker Chewing Tobacco Use: No Cigar Use: No Alcohol: None - CARDIAC Hx Cardiac Disorders: No - PULMONARY Hx Respiratory Disorders: No - NEUROLOGICAL Hx Neurological Disorder: No - HEENT Hx HEENT Problems: No - RENAL Hx Chronic Kidney Disease: No - ENDOCRINE/METABOLIC Hx Endocrine Disorders: No - HEMATOLOGICAL/ONCOLOGICAL Hx Blood Disorders: No Hx AIDS: No Hx Human Immunodeficiency Virus (HIV): No - INTEGUMENTARY Hx Dermatological Problems: No - MUSCULOSKELETAL/RHEUMATOLOGICAL Hx Musculoskeletal Disorders: No Hx Falls: No - GASTROINTESTINAL Hx Gastrointestinal Disorders: No - GENITOURINARY/GYNECOLOGICAL Hx Genitourinary Disorders: No - PSYCHIATRIC Hx Substance Use: No - SURGICAL HISTORY Hx Surgeries: Yes Hx Appendectomy: Yes (2015) - ANESTHESIA Hx Anesthesia: Yes Hx Anesthesia Reactions: No Meds Allergies/Adverse Reactions: Allergies Allergy/AdvReac Type Severity Reaction Status Date / Time No Known Allergies Allergy Verified 01/31/17 21:32 - Medications Medications: Current Medications Acetaminophen (Tylenol 325mg Tab) 650 mg PO Q4 PRN PRN Reason: Pain, moderate (4-7) Al Hydrox/Mg Hydrox/Simethicone (Maalox Plus 30 Ml) 30 ml PO Q4 PRN PRN Reason: Dyspepsia Diphenhydramine HCl (Benadryl) 50 mg IM Q6 PRN PRN Reason: Extrapyramidal S/S Unable PO Diphenhydramine HCl (Benadryl) 50 mg PO Q6 PRN PRN Reason: Extrapyramidal Symptoms Haloperidol (Haldol) 5 mg PO Q4 PRN PRN Reason: Agitation Haloperidol Lactate (Haldol) 5 mg IM Q4 PRN PRN Reason: Agitation, Unable to Take PO Lorazepam (Ativan) 2 mg IM Q4 PRN PRN Reason: Anxiety/Agitation,Unable PO Lorazepam (Ativan) 2 mg PO Q4 PRN PRN Reason: Anxiety/Agitation Magnesium Hydroxide (Milk Of Magnesia) 30 ml PO HS PRN PRN Reason: Constipation Physical Exam - Constitutional Appears: No Acute Distress - Head Exam Head Exam: ATRAUMATIC - Eye Exam Eye Exam: absent: Scleral icterus - ENT Exam ENT Exam: Mucous Membranes Moist - Neck Exam Neck exam: Negative for: Meningismus - Respiratory Exam Respiratory Exam: absent: Rales, Rhonchi, Wheezes, Respiratory Distress - Cardiovascular Exam Cardiovascular Exam: REGULAR RHYTHM, +S1, +S2 - GI/Abdominal Exam GI & Abdominal Exam: Soft. absent: Tenderness - Rectal Exam Rectal Exam: Deferred - Neurological Exam Neurological exam: Alert, Oriented x3 - Psychiatric Exam Psychiatric exam: Normal Affect - Skin Skin Exam: Dry, Intact Results - Vital Signs Recent Vital Signs: Last Vital Signs Temp Pulse 71 03/18/18 09:27 Resp 18 03/18/18 09:27 BP 112/65 03/18/18 09:27 Pulse Ox - Labs Labs: Laboratory Results - last 24 hr 03/18/18 06:37 Triglycerides 210 H Cholesterol 209 H LDL Cholesterol Direct 162 H HDL Cholesterol 32 Thyroxine (T4) 5.07 L TSH 3rd Generation 2.46 Assessment & Plan (1) Suicidal intent Status: Acute Comment: psyche is managing
[2018-03-18 17:51] LABS: RAPID PLASMA REAGIN REACTIVE (NONREACTIVE)
--- NOTE | 2018-03-18 17:59 | PCM.PSYCH ---
Initial Psychiatric Evaluation - Initial Psychiatric Evaluation Chief Complaint (in patient's own words): pt had argument with family had been drinking in impulsive act reportedly took tylenol 500mg tabs x 20, reportedly told girlfriend who called ems. pt reports family issues related to age of girlfriend and age of mother similar- pt reports not being close to mother feels comfortable with current girlfriend of 8 months living together for 4 months. denies previous psychiatric treatment. reports social drinking. reports when stressed at times will over react but denies previous suicide attempt, reports remorse, admits was attempt to get attention. Patient's Reaction to Hospitalization: pt signed in was initially admitted to icu from er 2nd to elevated acetometophin level. History of Present Illness and Precipitating Events: see above Current Medications: Active Medications Generic Name Dose Route Start Last Admin Trade Name Freq PRN Reason Stop Dose Admin Acetaminophen 650 mg 03/17/18 19:08 Tylenol 325mg Tab PO Q4 PRN Pain, moderate (4-7) Al Hydrox/Mg Hydrox/Simethicone 30 ml 03/17/18 19:08 Maalox Plus 30 Ml PO Q4 PRN Dyspepsia Diphenhydramine HCl 50 mg 03/17/18 19:08 Benadryl IM Q6 PRN Extrapyramidal S/S Unable PO Diphenhydramine HCl 50 mg 03/17/18 19:08 Benadryl PO Q6 PRN Extrapyramidal Symptoms Haloperidol 5 mg 03/17/18 19:08 Haldol PO Q4 PRN Agitation Haloperidol Lactate 5 mg 03/17/18 19:08 Haldol IM Q4 PRN Agitation, Unable to Take PO Lorazepam 2 mg 03/17/18 19:08 Ativan IM Q4 PRN Anxiety/Agitation,Unable PO Lorazepam 2 mg 03/17/18 19:08 Ativan PO Q4 PRN Anxiety/Agitation Magnesium Hydroxide 30 ml 03/17/18 19:08 Milk Of Magnesia PO HS PRN Constipation Past Psychiatric History - Past Psychiatric History Prior Professional Help: social drinking, denies previous psychiatric treatment History of Abuse: denies History of ETOH/Drug Use: social drinking , weekends, History of Family Illness: denies Pertinent Medical Hx (Current Medical&Sleep Prob, Allergies): Allergies Allergy/AdvReac Type Severity Reaction Status Date / Time No Known Allergies Allergy Verified 01/31/17 21:32 Review of Systems - Psychiatric Additional comments: remorse about reported impulsive overdose of tylenol to "get attention" then later telling girlfriend who called ems Mental Status Examination - Personal Presentation Personal Presentation: Looks younger than stated age - Affect Affect: Broad - Motor Activity Motor Activity: Calm - Reliability in Providing Information Reliability in Providing Information: Fair - Speech Speech: Organized - Formal Thought Process Formal Thought Process: No Impairment - Obsessions/Compulsions Obsessions: No Compulsions: No - Cognitive Functions Orientation: Person, Place, Situation, Time Sensorium: Alert Attention/Concentration: Attentive Abstract Thinking: [place] Judgement: Imparied, as evidence by: Other - Risk Risk: Suicidal - Strength & Assets Inventory Strength & Assets Inventory: Cooperative (impulsive suicide attempt od acetometophen) DSM 5 DX - DSM 5 DSM 5 Diagnosis: adjustment disorder status post suicide attempt overdose acetometophen family circumstances - Recommended/Plan of Treatment Treatment Recommendations and Plan of Treatment: inpt adm per attending vital signs and clinical observation per protocol and per clinical status hospitalist consult prns per unit protocol with family meeting with pt present review case, review labs , attempt, potential liver failure, pt verbally agreeable to remain in pt and also to be referred for individual psychotherapy discharge planning in progress-=may consider family counseling Projected ELOS: 5-7 day or per status Prognosis: guarded Discharge Plan and Discharge Criteria: safety - Smoking Cessation Smoking Cessation Initiated: No Reason for not providing: deferred
[2018-03-19 17:32] VITALS: RESP 18
--- NOTE | 2018-03-19 20:04 | PCM.PYCHPN ---
Psychiatric Progress Note - Psychiatric Progress Note Patient seen today, length of contact: chart reviewed case discusswith team Patient Chief Complaint: seen in unit. reports feeling less stressed. reports that after meeting with this rewriter and pt's reported girlfriend last evening has been reflecting believes act was wrong way of trying to get attention, processes feeling pulled between mother and girlfriend who is reportedly close to mother's age. pt was agreeable to meeting with mother, his grandmother and this rewriter. status discussed. review psychotherapy as well as family therapy. mother reports that in past she was estranged and wants to try to make up time, pt reports mother wishes to see him without girlfriend. review communication, etc. ego and motivation interview was applied. basics communication. hearing vs listening. pt reports sleeping and eating better. staff report pt has been seen in unit. pt denies complaints of gi pain, denies yellowing of sclera or skin. admits that realizes that may have done permanent damage inlcuding possible . verbally agreeable to continue psychotherapy upon discharge. review family pt 's individual therapy would be separate from family reflect on therapeutic boundaries with pt and his mother. Problems Identified/Issues Discussed: alteration in mood alteration in coping Medical Problems: per chart Diagnostic Results: per psychiatry per medicine per nursing per social work per recreational therapy DSM 5 Symptoms Update: improving mood gi complaints denied family circumstances Medication Change: No Medical Record Reviewed: Yes Consults ordered or reviewed: pt seen by hospitalist Mental Status Examination - Cognitive Function Orientation: Person, Place, Situation, Time Attention: WNL Concentration: WNL Association: WN Fund of Knowledge: WN Decription of patient's judgement and insights: impaired - Mood Mood: Neutral - Affect Affect: Broad - Speech Speech: Soft Additional comments: speaks tamazight - Formal Thought Process Formal Thought Process: No Impairment - Suicidal Ideation Suicidal Ideation: No - Homicidal Ideation Homicidal Ideation: No Goal/Treatment Plan - Goal/Treatment Plan Progress Toward Problem(s) and Goals/Treatment Plan: inpt milieu vital signs and clinical observation per protocol and per clinical status pt seen by hospitalist consult was previously on telemetry prns per unit protocol with family meeting with pt present review case, review labs , attempt, potential liver failure, pt verbally agreeable to remain in pt and also to be referred for individual psychotherapy discharge planning in progress-=may consider family counseling Estimated Date of D/C: 03/21/18 - Smoking Cessation Smoking Cessation Initiated: No Reason for not providing: pt defers
--- NOTE | 2018-03-20 15:53 | PCM.PYCHPN ---
Psychiatric Progress Note - Psychiatric Progress Note Patient seen today, length of contact: chart reviewed case discusswith team Patient Chief Complaint: I wanted to get attention from my family Problems Identified/Issues Discussed: pt evaluated with treatment team, reporte feeling remorseful about the suicide attempt, stated it was only a cry for help and seeking attention from family as he is overwhelmed by conflict between his mother and , pt at current time declining to be started on medications however agreess to receive therapy on discharge , denied any current thoughts of self harm, denied suicidal or homicidal ideation DSM 5 Symptoms Update: major depression adjustment disorder with depressed mood Medication Change: No Medical Record Reviewed: Yes Mental Status Examination - Cognitive Function Orientation: Person, Place, Situation, Time Attention: WNL Concentration: WNL Association: WNL Fund of Knowledge: WNL - Mood Mood: Neutral - Affect Affect: Broad - Speech Speech: Soft - Formal Thought Process Formal Thought Process: No Impairment - Suicidal Ideation Suicidal Ideation: No - Homicidal Ideation Homicidal Ideation: No Goal/Treatment Plan - Goal/Treatment Plan Need for Continued Stay: Severe depression anxiety, Discharge may exacerbated symptoms, Failed transitioning Progress Toward Problem(s) and Goals/Treatment Plan: CBT ,group therapy referral to therapy on discharge Estimated Date of D/C: 03/21/18
[2018-03-21 09:27] VITALS: BP 126/78; PULSE 74; TEMP 98.1
--- NOTE | 2018-03-21 11:48 | PCM.PYCHDC ---
Mental Status Examination - Mental Status Examination Orientation: Person, Place, Situation Memory: Intact Mood: Neutral Affect: Broad Speech: Appropriate Attention: WNL Concentration: WNL Association: WNL Fund of Knowledge: WNL Formal Thought Process: No Impairment Description of patient's judgement and insight: partial insight, fair judgment Psychotic Thoughts and Behaviors: pt denied perceptual disturbances, non elicited Suicidal Ideation: No Current Homicidal Ideation?: No Discharge Summary - Discharge Note Reason for Hospitalization: pt had argument with family had been drinking in impulsive act reportedly took tylenol 500mg tabs x 20, reportedly told girlfriend who called ems. pt reports family issues related to age of girlfriend and age of mother similar- pt reports not being close to mother feels comfortable with current girlfriend of 8 months living together for 4 months. denies previous psychiatric treatment. reports social drinking. reports when stressed at times will over react but denies previous suicide attempt, reports remorse, admits was attempt to get attention. Consultations:: List each consultation separately and include: 1. Reason for request. 2. Findings. 3. Follow-up Summary of Hospital Course include:: 1. Description of specific treatment plan utilized for patients during their course of treatmen. 2. Summarize the time- course for resolution of acute symptoms and/or regressed behaviors. 3. Describe issues identified and worked on during hospitalization. 4. Describe medication utilized. 5. Describe medical problems identified and treated. 6. Reassessment of suicide risk Summary of Hospital Course: pt on admission, was transfered from medical floor, reported feeling remorseful about the suicide attempt, indicated it was a gestureof attention seeking from mother and so they would recognize the effect of their conflict on his life, pt denied any thoughts of self harm on the unit, participated in groups however declined taking medications. 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
== END 2018-03-21 12:28 | disposition home or self-care (01) | DRG 426 ==
LOC: H.ERHOLD 18:56 → H.PSYCH 19:06
PROVIDERS: ADMIT Psychiatry & Neurology Psychiatry; ATTEND Psychiatry & Neurology Psychiatry
PROC: GZHZZZZ Group Psychotherapy (ICD-10-PCS; principal; 2018-03-19)
PROC: GZ51ZZZ Individual Psychotherapy, Behavioral (ICD-10-PCS; 2018-03-19)
DX: F43.21 Adjustment disorder with depressed mood (principal); Z87.891 Personal history of nicotine dependence; Z91.5 Personal history of self-harm; R45.87 Impulsiveness; T39.1X2D Poisoning by 4-Aminophenol derivatives, intentional self-harm, subsequent encounter